=== PATIENT | female | born 1975 | race Caucasian/White ===

== ENCOUNTER 2018-03-12 12:48 | Emergency (ER) | payer MEDICAID ==
[2018-03-12] MEDS: DIPHTH/TET/ACEL PERTUSS (ADULT) 0.5 ML VIAL IM* (14:05)
== END 2018-03-12 14:28 | disposition home or self-care (01) ==
LOC: FTE 12:48
DX: S81.812A Laceration without foreign body, left lower leg, initial encounter (principal); R58 Hemorrhage, not elsewhere classified; W26.8XXA Contact with other sharp object(s), not elsewhere classified, initial encounter; Y92.9 Unspecified place or not applicable; Z23 Encounter for immunization
CPT/HCPCS: 90471; 90715; 99283-25